=== PATIENT | male | born 1955 | race Caucasian/White ===

== ENCOUNTER 2016-12-11 13:37 | Day surgery (SDC) | payer OTHER ==
[~2016-12-11] VITALS: Ht 170.2 cm; Wt 72.6 kg
[~2016-12-11 13:37] MED LIST: CALCITRIOL0.25 MCG PO; CARVEDILOL6.25 MG PO; CETIRIZINE HCL10 M2 PO; LISINOPRIL2.5 MG PO; LOVASTATIN20 MG PO; MELOXICAM7.5 MG PO; OMEPRAZOLE20 MG PO; TRAZODONE HCL150 MG PO; XARELTO20 MG PO
== END 2016-12-11 14:30 | disposition home or self-care (01) ==
LOC: CATH 13:37
PROC: 4A02XFZ Measurement of Cardiac Rhythm, External Approach (ICD-10-PCS; principal; 2016-12-11)
DX: I48.1 Persistent atrial fibrillation (principal); Z53.09 Procedure and treatment not carried out because of other contraindication; I10 Essential (primary) hypertension; K21.9 Gastro-esophageal reflux disease without esophagitis; Z79.01 Long term (current) use of anticoagulants; Z87.891 Personal history of nicotine dependence; I42.0 Dilated cardiomyopathy
CPT/HCPCS: 93005